=== PATIENT | female | born 1950 | race Caucasian/White ===

== ENCOUNTER 2019-09-09 06:53 | Day surgery (SDC) | payer MEDICARE, OTHER ==
[~2019-09-09] VITALS: Ht 162.6 cm; Wt 72.6 kg
--- NOTE | ~2019-09-09 | OP ---
PATIENT NAME: JUAN WOOD MEDICAL RECORD: [id number] :54 LOCATION:[facility] ADMISSION DATE: SURGEON: HALLEY KHAN MD DATE OF OPERATION: 09/09/2019 PREOPERATIVE DIAGNOSES: Disc herniation and L2-L3 right with right L2-L3 radiculopathy. POSTOPERATIVE DIAGNOSES: Disc herniation and L2-L3 right with right L2-L3 radiculopathy. PROCEDURE: Lumbar laminectomy, medial facetectomy and foraminotomy with discectomy L2-L3 on the right. SURGEON: Halley Khan MD DESCRIPTION AND TECHNIQUE: After induction of general endotracheal anesthesia, the patient was rolled prone on a Josse frame. Lumbar spine was prepped and draped in usual sterile fashion. Fluoroscopic x-ray and spinal needle localized at L2-L3 interspace on the right side. After infiltration of 1:100,000 epinephrine and 1% lidocaine, a stab incision was created at L2-L3 on the right. A series of dilators were used to advance a METRx retractor to the L2-L3 interspace on the right side. Level was confirmed with fluoroscopic x-ray. A microscope and Midas Lacho drill were used to perform laminotomy, medial facetectomy and foraminotomy at L2-L3 on the right. Hypertrophied ligamentum flavum was removed with Cloward rongeurs. Following this, there was a subligamentous disc herniation within the axilla of the right L2 nerve root. The ligament was incised. Disk material was removed in a piecemeal fashion. This greatly decompressed the L3 nerve root on the right side. The L3 nerve root was followed caudally in the spinal canal and had no nerve root compression. Meticulous hemostasis was maintained throughout the wound. Wound was irrigated with copious amounts of lukewarm saline irrigant solution. The fascia was closed with a 2-0 Vicryl suture, the subdermal layer was closed with 3-0 Vicryl suture, skin was closed with alix. A sterile dressing was applied to the wound. The patient was awakened in good condition and taken to recovery. All counts were reported to be correct. Estimated blood loss was minimal. TRANSINT:[id number] Voice Confirmation ID: [id number] DOCUMENT ID: [id number] HALLEY KHAN MD CC: [id number] DICTATION DATE: 09/09/19 1719 ORNAMENTAL IRONWORKING SUPERVISOR: 09/09/19 2325 [facility] 09/09/19 [facility] [address] [place] [address]
[~2019-09-09 06:53] MED LIST: BACLOFEN10 MG PO; CELEXA40 MG PO; MOBIC7.5 MG PO; PERCOCET 10-321 EAC1 PO; PHENERGAN25 M1 PO; TENORMIN25 MG PO; VENTOLIN INH
[2019-09-09 07:11] LABS: HEMATOCRIT 40.4 % (36.0-48.0); HEMOGLOBIN 13.6 g/dL (12-16); MCHC 33.7 g/dL (31.0-37.0); MEAN PLATELET VOLUME 8.2 fL (7.4-10.4); RBC 4.39 10x6/uL (4.00-5.40); RDW 14.1 % (11.5-14.5); WBC 13.6 10x3/uL (4.8-10.8)
[2019-09-09] MEDS ORDERED: VITAMIN D3 (07:56)
[2019-09-09 08:09] VITALS: BP 135/74; Ht 162.6 cm; Wt 72.6 kg
[2019-09-09] MEDS ORDERED: HYDROCODON-ACE1 EA10 PO (11:27)
--- NOTE | 2019-09-09 16:20 | NUR ---
1415 PT DISCHARGED IN STABLE CONDITION WITH BP 118/70. NO C/O.
== END 2019-09-09 14:15 | disposition home or self-care (01) ==
LOC: D.OPS 06:53 → D.PAN 09:00 → D.OPS 09:00
PROVIDERS: Anesthesiology; ATTEND Neurological Surgery
DX: M51.16 Intervertebral disc disorders with radiculopathy, lumbar region (principal); M53.86 Other specified dorsopathies, lumbar region

== ENCOUNTER 2020-10-11 05:55 | Day surgery (SDC) | payer MEDICARE, OTHER ==
[2019-09-09 08:09] VITALS: Ht 162.6 cm; Wt 72.6 kg
[2020-10-10 15:21] LABS: BASOPHILS 0.7 % (0-2); EOSINOPHILS 1.7 % (0-7); HEMOGLOBIN 14.6 g/dL (12-16); IMMATURE GRANULOCYTES 0.2 % (0-5); LYMPHOCYTES 31.8 % (15-50); MCH 30.4 pg (26.0-34.0); MCHC 33.2 g/dL (31.0-37.0); MCV 91.7 fL (80.0-100.0); MEAN PLATELET VOLUME 8.3 fL (7.4-10.4); MONOCYTES 9.6 % (2-11); NEUTROPHIL ABS# 6.87 10x3/uL (1.56-6.13); PLATELET COUNT 381 10x3/uL (130-400); WBC 12.3 10x3/uL (4.8-10.8)
[2020-10-10 15:39] LABS: SARS-CoV-2 ANTIGEN NEGATIVE- SARS-COV-2 (NEGATIVE)
[2020-10-10 15:46] LABS: ANION GAP 14.7 mmol/L (8-16); CALCIUM 8.8 mg/dL (8.5-10.1); CARBON DIOXIDE 28.8 mmol/L (21.0-32.0); CREATININE - SERUM 1.2 mg/dL (0.6-1.3); POTASSIUM - SERUM 4.5 mmol/L (3.5-5.1)
[~2020-10-11] VITALS: Ht 162.6 cm; Wt 72.6 kg
[~2020-10-11 05:55] MED LIST changes: +ELIQUIS5 MG PO; +FUROSEMIDE20 MG PO; +GABAPENTIN100 MG PO; +HYDROCODON-ACE1 EA10 PO; +LISINOPRIL10 MG PO; +MIRAPEX0.5 MG PO; +VITAMIN D3; +potassium chloride
[2020-10-11] MEDS ORDERED: TOPROL XL25 MG PO (06:21)
[2020-10-11] MEDS ORDERED: LIPITOR40 MG PO (06:22)
[2020-10-11 06:24] VITALS: BP 115/75; BMI 27.5
[2020-10-11] MEDS ORDERED: TRAMADOL HCL E100 M1 PO (11:06)
[2020-10-11] MEDS ORDERED: MEDROL DOSE PACK4 MG PO (11:06)
--- NOTE | 2020-10-11 15:15 | NUR ---
DRSG REINFORCED FOR SEROSAINGUINOUS DRAINAGE. IV D/C'D WITH CANNULA INTACT, PRESSURE HELD AND DRSG PLACED. NAUSEA RESOLVED AFTER ZOFRAN IV ADMINISTERED. DISCHARGE INSTRUCTIONS GIVEN AND PT VERBALIZED AN UNDERSTANDING. DENIES ANY PAIN AND AMBULATES WITHOUT DIFFICULTY.
--- NOTE | 2020-10-18 13:05 | OP ---
PATIENT NAME: JUAN WOOD MEDICAL RECORD: [id number] :52 LOCATION:[facility] ADMISSION DATE: SURGEON: HALLEY KHAN MD DATE OF OPERATION: 10/11/2020 PREOPERATIVE DIAGNOSIS: Lumbar spinal stenosis with foraminal stenosis at L2-L3 and L3-L4 on the right. PROCEDURE: Lumbar laminectomy, medial facetectomy and foraminotomy at L2-L3, L3-L4, right with METRx retractor. SURGEON: Halley Khan MD DESCRIPTION OF TECHNIQUE: After induction of general endotracheal anesthesia, the patient was rolled prone on a Josse frame. Lumbar spine was prepped and draped in the usual sterile fashion. Fluoroscopic x-ray and spinal needle localized the L2-L3 interspace on the right side. After infiltration with 1:100,000 epinephrine with 1% lidocaine, a stab incision was created with a #11 blade. A series of dilators were used to advance a METRx retractor to the L2-L3 interspace on the right side. Levels confirmed with fluoroscopic x-ray. A microscope and Midas Lacho drill were used to perform a laminectomy, medial facetectomy, and foraminotomy at L2-L3 and L3-L4 on the right. Hypertrophied ligamentum flavum was removed with Cloward rongeurs. Following this, the L2, L3 and L4 nerve roots were decompressed as well. Meticulous hemostasis was maintained throughout the wound. Wound was irrigated with copious amounts of Ancef irrigant solution. The retractor was removed. The fascia was closed with 2-0 Vicryl suture. The subdermal layer was closed with 3-0 Vicryl suture. Skin was closed with alix. A sterile dressing was applied to the wound. The patient was awakened in good condition and taken to recovery. All counts were reported as correct. ESTIMATED BLOOD LOSS: Minimal. TRANSINT:[id number] Voice Confirmation ID: [id number] DOCUMENT ID: [id number] HALLEY KHAN MD at 1305 CC: [id number] DICTATION DATE: 10/17/20 1230 FOREST PATHOLOGIST: 10/17/20 1310 [facility] 10/11/20 [place] [address]
== END 2020-10-11 14:15 | disposition home or self-care (01) ==
LOC: D.OPS 05:55
PROVIDERS: Anesthesiology; ATTEND Neurological Surgery
DX: M48.061 Spinal stenosis, lumbar region without neurogenic claudication (principal); M54.16 Radiculopathy, lumbar region

== ENCOUNTER → 2020-11-24 08:30 | Outpatient (CLI) | payer MEDICARE, OTHER ==
[~2020-11-24 08:30] MED LIST changes: +LIPITOR40 MG PO; +MEDROL DOSE PACK4 MG PO; +TOPROL XL25 MG PO; +TRAMADOL HCL E100 M1 PO
== END | disposition home or self-care (01) ==
LOC: D.MRI 08:30
PROVIDERS: ATTEND Nurse Practitioner Family
DX: M87.851 Other osteonecrosis, right femur (principal)

== ENCOUNTER → 2020-12-04 20:34 | Outpatient (CLI) | payer MEDICARE, OTHER | END | disposition home or self-care (01) | LOC: D.LABREF 20:34 | PROVIDERS: ATTEND Orthopaedic Surgery | DX: M16.11 Unilateral primary osteoarthritis, right hip (principal) ==

== ENCOUNTER 2021-01-10 05:40 | Inpatient (IN) | payer MEDICARE, OTHER ==
[2021-01-03 13:09] LABS: EOSINOPHILS 1.4 % (0-7); HEMATOCRIT 40.9 % (36.0-48.0); HEMOGLOBIN 13.6 g/dL (12-16); LYMPHOCYTES 29.2 % (15-50); MCH 29.7 pg (26.0-34.0); MCHC 33.3 g/dL (31.0-37.0); MCV 89.4 fL (80.0-100.0); MEAN PLATELET VOLUME 6.7 fL (7.4-10.4); MONOCYTES 8.4 % (2-11); RBC 4.57 10x6/uL (4.00-5.40); RDW 14.1 % (11.5-14.5); WBC 13.4 10x3/uL (4.8-10.8)
[2021-01-03 13:21] LABS: ANION GAP 10.9 mmol/L (8-16); CALCIUM 8.9 mg/dL (8.5-10.1); CREATININE - SERUM 1.1 mg/dL (0.6-1.3); POTASSIUM - SERUM 3.9 mmol/L (3.5-5.1)
[2021-01-03 13:41] LABS: PLATELET COUNT 483 10x3/uL (130-400)
[2021-01-03 13:59] LABS: BILIRUBIN NEGATIVE (NEGATIVE); KETONE NEGATIVE (NEGATIVE); NITRITE NEGATIVE (NEGATIVE)
[2021-01-03 14:00] LABS: BACTERIA FEW HPF (NONE SEEN); SQUAMOUS EPITHELIAL 0-5 HPF (0-4); WHITE CELLS - URINE 0-5 HPF (0-4)
[2021-01-03 14:05] LABS: INR 1.09 (0.85-1.17); PROTIME 13.1 SECONDS (11.6-15.0)
[2021-01-10] VITALS (12 sets, daily range): BP systolic 89–118; BP diastolic 51–69; BMI 29.2
[~2021-01-10] VITALS: Ht 162.6 cm; Wt 77.1 kg
[~2021-01-10 05:40] MED LIST changes: -FUROSEMIDE20 MG PO; +FUROSEMIDE40 MG PO; +K-DUR20 MEQ PO; +PROTONIX40 MG PO; +TRELEGY ELLIPT1 EACH INH; +ULTRAM50 MG PO; +VITAMIN D 22000 UNIT PO; -VITAMIN D3
[2021-01-10 07:07] LABS: BASOPHILS 1.2 % (0-2); EOSINOPHILS 2.1 % (0-7); HEMATOCRIT 38.3 % (36.0-48.0); HEMOGLOBIN 12.8 g/dL (12-16); LYMPHOCYTES 35.5 % (15-50); MCH 30.1 pg (26.0-34.0); MCHC 33.4 g/dL (31.0-37.0); MCV 90.1 fL (80.0-100.0); MEAN PLATELET VOLUME 6.8 fL (7.4-10.4); MONOCYTES 11.6 % (2-11); NEUTROPHILS 49.6 % (40-80); PLATELET COUNT 444 10x3/uL (130-400); RBC 4.25 10x6/uL (4.00-5.40); RDW 14.1 % (11.5-14.5); WBC 11.7 10x3/uL (4.8-10.8)
[2021-01-10 07:36] LABS: BILIRUBIN NEGATIVE (NEGATIVE); KETONE NEGATIVE (NEGATIVE); NITRITE NEGATIVE (NEGATIVE); UROBILINOGEN NORMAL mg/dL (< 2)
--- NOTE | 2021-01-10 08:58 | NUR ---
CAUTERY PAD PLACED ON LEFT UPPER THIGH. PLASMA BLADE USED ON SETTING 6/8. AQUAMANTYS USED ON SETTING 170. CAUTERY PAD LOT#[id number] EXP. 11/24/2022
--- NOTE | 2021-01-10 15:39 | OP ---
PATIENT NAME: JUAN WOOD MEDICAL RECORD: [id number] :54 LOCATION:[facility] ADMISSION DATE:01/10/21 SURGEON: EDISON PADILLA DO DATE OF OPERATION: 01/10/2021 PROCEDURE PERFORMED: Right total hip arthroplasty. PREOPERATIVE DIAGNOSIS: Right hip avascular necrosis. POSTOPERATIVE DIAGNOSIS: Right hip avascular necrosis. INDICATIONS: Ms. Wood is a 70-year-old female who has had avascular necrosis of the right femoral head for some time. It appears on x-ray that she had fractured femoral neck some time ago and then developed AVN likely the cause is a minimally displaced femoral neck fracture or it could be that she had AVN and it did collapse slightly at the neck, probably the first was what happened. She has had pain for quite some time. She is aware of the risks and benefits of this including infection, bleeding, damage to nerves and vessels, need for further surgery, continued pain, fracture, failure of implant, leg length discrepancy, blood clots and even and she signed the consent. SURGEON: Edison Padilla DO DESCRIPTION OF PROCEDURE: The patient was taken to the operative suite, laid in supine position, given general anesthetic and intubated, given 2 gram of Ancef, 80 mg gentamicin, and a gram of TXA. The patient was then positioned on the [place] table. The right lower extremity was prepped and draped in sterile fashion. A time-out was performed. Everyone was in agreement with correct side, site, patient and procedure. I then began by making an incision over the tensor fascia maine muscle and made careful dissection down to the tensor fascia maine muscle belly, took the muscle belly posteriorly to the tensor fascia anteriorly and they opened up the rectus interval, the rectus medially and tensor fascia maine laterally. I encountered the ascending branch of lateral femoral circumflex, tied it off and coagulated and cut through and coagulated vessels. As I went through, I then opened up the capsule and tagged it and put Hohmanns around the neck intracapsularly. I then cut the femoral neck and removed the femoral head. I then put in the Charnley, removed the labrum and pulvinar and coagulated any bleeding. I then reamed under fluoroscopy and put in a 48 cup. Her bone was very soft in her pelvis. I then impacted in the liner. I then exposed the femur, put a femoral elevator underneath it and raised it up. I then put it in the canal finder and cookie cutter. I then broached to an 11, 11 fit well, put in 11 with a -6 neck on, and is almost equal lengths to the left side on x-ray or equal lengths. I then dislocated the hip, removed the trials and irrigated and then put in the actual 11 stem with a dual mobility -6 head and reduced the hip. We then got x-rays, no fracture seen in the femur and the stem fit very well and there were equal lengths to the left side. On AP pelvis, we then irrigated with 10% povidone and iodine and 500 mL normal saline solution. She then had Concha and vancomycin and tobramycin powder put in the wound and then Dewayne Felix, certified surgical perinatal breastfeeding assistant after irrigating closed the fascia with #1 Vicryl in a [id number] and then running locking stitch over the tensor fascia maine fascia and the skin with 2-0 Vicryl in interrupted fashion, 4-0 Monocryl in the skin, and Prineo glue was placed on the skin with dried Telfa and Tegaderm. She was then awakened and taken to recovery in stable condition. OPERATIVE REPORT [id number] JUAN WOOD BLOOD LOSS: Approximately 300 mL. COMPLICATIONS: None. TRANSINT:[id number] Voice Confirmation ID: [id number] DOCUMENT ID: [id number] EDISON PADILLA DO at 1539 CC: [id number] DICTATION DATE: 01/10/21 1019 SCHOOL INSPECTOR: 01/10/21 1357 ADM IN [facility] [address] [place] [address]
--- NOTE | 2021-01-10 18:37 | NUR ---
PT STATED SHE HAD NOT VOIDED. DID IN AND OUT CATH AND GOT 300ML OUT. ALL NEEDS MET AT THIS TIME. CLWR.
[2021-01-11] VITALS (8 sets, daily range): BP systolic 81–103; BP diastolic 42–52; Ht 162.6 cm; Wt 77.1 kg
[2021-01-11 08:19] LABS: ALBUMIN 2.6 g/dL (3.4-5.0); ANION GAP 8.7 mmol/L (8-16); BILIRUBIN - TOTAL 0.32 mg/dL (0.2-1.3); CALCIUM 7.4 mg/dL (8.5-10.1); CARBON DIOXIDE 27.4 mmol/L (21.0-32.0); CREATININE - SERUM 1.6 mg/dL (0.6-1.3); POTASSIUM - SERUM 4.1 mmol/L (3.5-5.1); PROTEIN - SERUM 5.7 g/dL (6.4-8.2)
[2021-01-11 09:15] LABS: HEMATOCRIT 32.7 % (36.0-48.0); HEMOGLOBIN 10.9 g/dL (12-16); MCH 29.7 pg (26.0-34.0); MCHC 33.2 g/dL (31.0-37.0); MCV 89.2 fL (80.0-100.0); MEAN PLATELET VOLUME 6.4 fL (7.4-10.4); PLATELET COUNT 337 10x3/uL (130-400); RBC 3.66 10x6/uL (4.00-5.40); RDW 14.3 % (11.5-14.5); WBC 23.2 10x3/uL (4.8-10.8)
[2021-01-11 09:48] LABS: LYMPHOCYTES 26 % (15-50); MONOCYTES 1 % (2-11); NEUTROPHILS 73 % (40-80); PLATELET ESTIMATE NORMAL
[2021-01-11 17:50] LABS: BASOPHILS 0.6 % (0-2); EOSINOPHILS 0.4 % (0-7); HEMATOCRIT 33.4 % (36.0-48.0); HEMOGLOBIN 10.9 g/dL (12-16); MCH 29.4 pg (26.0-34.0); MCHC 32.5 g/dL (31.0-37.0); MCV 90.6 fL (80.0-100.0); MEAN PLATELET VOLUME 6.6 fL (7.4-10.4); MONOCYTES 10.7 % (2-11); NEUTROPHILS 69.3 % (40-80); PLATELET COUNT 333 10x3/uL (130-400); RBC 3.69 10x6/uL (4.00-5.40); RDW 14.2 % (11.5-14.5); WBC 23.4 10x3/uL (4.8-10.8)
[2021-01-11 17:55] LABS: CALCIUM 7.7 mg/dL (8.5-10.1); CREATININE - SERUM 1.7 mg/dL (0.6-1.3)
[2021-01-11 18:01] LABS: ALBUMIN 2.6 g/dL (3.4-5.0); BILIRUBIN - TOTAL 0.49 mg/dL (0.2-1.3); PROTEIN - SERUM 5.8 g/dL (6.4-8.2)
--- NOTE | 2021-01-11 20:00 | NUR ---
ALERT SITTING UP IN BED DENIES NEEDS AT THIS TIME, SEE SHIFT ASSESSMENT, CALL LIGHT IN REACH
[2021-01-12 00:35] VITALS: BP 99/56
[2021-01-12 04:00] VITALS: BP 111/66
[2021-01-12 06:27] LABS: ALBUMIN 2.4 g/dL (3.4-5.0); ANION GAP 11.4 mmol/L (8-16); BILIRUBIN - TOTAL 0.5 mg/dL (0.2-1.3); CALCIUM 7.8 mg/dL (8.5-10.1); CREATININE - SERUM 1.6 mg/dL (0.6-1.3); POTASSIUM - SERUM 4.4 mmol/L (3.5-5.1); PROTEIN - SERUM 5.6 g/dL (6.4-8.2)
[2021-01-12 06:36] LABS: BASOPHILS 0.5 % (0-2); EOSINOPHILS 0.1 % (0-7); HEMATOCRIT 30.3 % (36.0-48.0); HEMOGLOBIN 10.1 g/dL (12-16); LYMPHOCYTES 12.4 % (15-50); MCHC 33.2 g/dL (31.0-37.0); MCV 90.4 fL (80.0-100.0); MEAN PLATELET VOLUME 7.2 fL (7.4-10.4); MONOCYTES 11.6 % (2-11); NEUTROPHILS 75.4 % (40-80); PLATELET COUNT 331 10x3/uL (130-400); RBC 3.35 10x6/uL (4.00-5.40); RDW 14.4 % (11.5-14.5); WBC 21.6 10x3/uL (4.8-10.8)
--- NOTE | 2021-01-12 08:43 | NUR ---
PT ASSISTED TO BSC. CL IN REACH. NO FURTHER NEEDS AT THIS TIME. WCTM
[2021-01-12 09:14] VITALS: BP 116/57
[2021-01-12 13:24] VITALS: BP 104/57
[2021-01-12 14:41] LABS: BILIRUBIN NEGATIVE (NEGATIVE); KETONE NEGATIVE (NEGATIVE); NITRITE NEGATIVE (NEGATIVE); UROBILINOGEN NORMAL mg/dL (< 2)
[2021-01-12 14:42] LABS: BACTERIA FEW HPF (NONE SEEN); SQUAMOUS EPITHELIAL OCC HPF (0-4); WHITE CELLS - URINE 0-5 HPF (0-4)
--- NOTE | 2021-01-12 15:28 | NUR ---
PT ASSISTED TO BATHROOM AND BACK TO BED. SON IN ROOM. NO NEEDS AT THIS TIME. WCTM
[2021-01-12 18:05] VITALS: BP 123/64
[2021-01-12] MEDS ORDERED: PERCOCET 10-321 EAC1 PO (18:50)
[2021-01-12] MEDS ORDERED: VISTARIL50 MG PO (18:50)
--- NOTE | 2021-01-12 20:51 | NUR ---
PT IV THERAPY REMOVED FROM RIGHT WRIST WITH TIP INTACT. VERBALIZED UNDERSTANDING TO MAKE A FOLLOW UP APPOINTMENT WITH PCP, VALERIE, AND PT OUT IN [place]. PAIN MEDS GIVEN BEFORE DISCHARGE FOR EASE OF RIDE. DRESSING CHANGE PER VALERIE. WHEELED TO ER EXIT TO [facility] AWAITING TRUCK
== END 2021-01-12 20:54 | disposition home or self-care (01) | DRG 470 ==
LOC: D.OPS 05:40 → OBSVTIME 07:19 → D.MS 07:19 → D.OPS 07:45 → EDSTATUS 08:00 → D.OPS 08:00 → D.MS 11:16 → D.OPS 11:16 → D.MS 01-11 17:27
PROVIDERS: Emergency Medicine; Family Medicine; ADMIT Orthopaedic Surgery; ATTEND Orthopaedic Surgery
PROC: 0SR90JZ Replacement of Right Hip Joint with Synthetic Substitute, Open Approach (ICD-10-PCS; principal; 2021-01-11)
DX: M87.851 Other osteonecrosis, right femur (principal); N17.9 Acute kidney failure, unspecified; E87.1 Hypo-osmolality and hyponatremia; I10 Essential (primary) hypertension; J44.9 Chronic obstructive pulmonary disease, unspecified; I48.91 Unspecified atrial fibrillation; G89.29 Other chronic pain; M54.9 Dorsalgia, unspecified; I25.10 Atherosclerotic heart disease of native coronary artery without angina pectoris; F41.8 Other specified anxiety disorders; M41.9 Scoliosis, unspecified; I95.9 Hypotension, unspecified